=== PATIENT | female | born 1990 | race Caucasian/White ===

== ENCOUNTER 2022-06-23 19:26 | Inpatient (IN) | payer SELFPAY ==
[2022-06-23] MEDS ORDERED: Zofran 4 MG/2 ML VIAL IV PRN (19:50)
[2022-06-23] MEDS ORDERED: OMNIPEN 2 GM ONE (19:56)
[2022-06-23] MEDS ORDERED: Sodium Chloride 100ML MINI-BAG PLUS 100 ML IV ONE ×2 (19:56→23:19)
[2022-06-23] MEDS ORDERED: Lactated Ringers 1,000 ML IV ONE ×2 (19:56→20:00)
[2022-06-23] MEDS: Lactated Ringers 1,000 ML IV SCH (19:58)
[2022-06-23] MEDS ORDERED: OMNIPEN 2 GM*** 2 G in Sodium Chloride 100ML MINI-BAG PLUS 100 ML IV ONE (20:00)
[2022-06-23] MEDS ORDERED: XYLOCAINE 1% HCL 20 ML MDV IJ PRN (20:00)
[2022-06-23] MEDS ORDERED: FENTANYL 2 MCG-BUPIV 0.125%-NS 250 ML Epidur 250 ML EPIDURAL SCH (20:00)
[2022-06-23] MEDS ORDERED: PITOCIN 30 UNITS/ LR 500 ML 30 UNITS/500 ML PLAST..BAG IV SCH (20:00)
[2022-06-23] MEDS ORDERED: Ephedrine Sulfate 50 MG/ML IV PRN (20:00)
[2022-06-23 20:07] LABS: Absolute Neutrophil Ct (ANC) 7.27 x10^3/uL (1.4-6.9); BASOPHIL % 0.2 % (0.0-0.4); Basophil (Absolute #) 0.02 x10^3/uL (0-0.4); Hematocrit 26.3 % (35-47); Hemoglobin 8.2 g/dL (12.0-16.0); Lymphocytes % 16.3 % (24.0-44.0); Mean Cell Volume 80.7 fL (78-100); Mean Corpuscular Hemoglobin 25.2 pg (26-32); Mean Corpuscular Hgb Concent. 31.2 g/dL (32-36); Mean Platelet Volume 11.6 fL (7.5-11.0); Monocyte (Absolute #) 0.74 x10^3/uL (0.0-1.3); Monocytes % 7.5 % (0.0-12.0); Platelet Count 148 x10^3/uL (150-450); Red Blood Count 3.26 x10^6/uL (4.1-5.4); Red Cell Distribution Width 14.2 % (11.5-14.0); White Blood Count 9.8 x10^3/uL (4.0-10.5)
[2022-06-23 20:33] LABS: Appearance Clear (Clear); Bacteria Moderate /HPF (None Seen); Bilirubin Negative (Negative); Blood Negative (Negative); Epithelial Cells None Seen /HPF (None Seen); Glucose, Urine Negative (Negative); Hyaline Casts NONE SEEN /LPF (0-2); Ketones Negative (Negative); Leukocyte Esterase Negative (Negative); Nitrite Negative (Negative); Ph 6.5 (4.6-8.0); Protein,Urine Dip Negative (Negative); RBC 0-2 /HPF (0-5); Specific Gravity 1.015 (1.005-1.030); WBC 0-2 /HPF (0-5)
[2022-06-23 20:44] LABS: ADD URINE CULTURE? YES (NO); Barbiturate,Urine NEGATIVE (NEGATIVE); Benzodiazepine,Urine NEGATIVE (NEGATIVE); Cocaine,Urine NEGATIVE (NEGATIVE); Methadone,Urine NEGATIVE (NEGATIVE); Opiate,Urine NEGATIVE (NEGATIVE); PCP,Urine NEGATIVE (NEGATIVE); THC,Urine NEGATIVE (NEGATIVE)
[2022-06-23 20:52] LABS: ABO TYPING O; Antibody Screen NEGATIVE (NEGATIVE); RH TYPING NEGATIVE
[2022-06-23 21:10] LABS: Amphetamine,Urine POSITIVE (NEGATIVE)
[2022-06-23] MEDS: TYLENOL EXTRA STRENGTH 500 MG PO PRN (21:21)
[2022-06-23] MEDS ORDERED: OMNIPEN 1 GM ONE (23:18)
[2022-06-23] MEDS ORDERED: CORTISONE 1% CREAM TP PRN (23:23)
[2022-06-23] MEDS ORDERED: Mylicon 80MG PO PRN (23:23)
[2022-06-23] MEDS ORDERED: LANSINOH 40 GM TOP PRN (23:23)
[2022-06-23] MEDS ORDERED: Dulcolax 10 MG SUPP PR PRN (23:23)
[2022-06-23] MEDS ORDERED: TUCKS TP PRN (23:23)
[2022-06-23] MEDS ORDERED: Anucort-HC SUPPOSITORY PR PRN (23:23)
[2022-06-23] MEDS ORDERED: NORCO 5/325 MG PO PRN (23:23)
[2022-06-24] MEDS ORDERED: Dermoplast Spray TP PRN
[2022-06-24] MEDS: OMNIPEN 1 GM*** 1 GM in Sodium Chloride 100ML MINI-BAG PLUS 100 ML IV SCH ×2 (00:08→05:52)
[2022-06-24] MEDS ORDERED: Lactated Ringers 1,000 ML IV ONE (02:20)
[2022-06-24] MEDS: TYLENOL EXTRA STRENGTH 500 MG PO PRN ×3 (02:49→16:44)
[2022-06-24] MEDS ORDERED: Hydromorphone 1 mg/ml Injection IV ONE (02:59)
[2022-06-24] MEDS: Lactated Ringers 1,000 ML IV SCH (05:51)
[2022-06-24 08:35] VITALS: O2SAT 99
[2022-06-24] MEDS ORDERED: FERREX 150 PO SCH (10:00)
[2022-06-24] MEDS ORDERED: Docusate Sodium 100 MG PO SCH (10:00)
[2022-06-24] MEDS ORDERED: Rhogam Plus 300 MCG IM ONE (10:00)
[2022-06-24 12:05] LABS: Absolute Neutrophil Ct (ANC) 7.68 x10^3/uL (1.4-6.9); BASOPHIL % 0.3 % (0.0-0.4); Basophil (Absolute #) 0.03 x10^3/uL (0-0.4); Eosinophil % 1.4 % (0.00-5.0); Eosinophil (Absolute #) 0.15 x10^3/uL (0-0.5); Hematocrit 24.5 % (35-47); Hemoglobin 7.6 g/dL (12.0-16.0); IMMATURE GRAN # 0.09 x10^3u/L (0.00-0.03); IMMATURE GRAN % 0.8 % (0.00-0.4); Lymphocyte (Absolute #) 1.97 x10^3/uL (1.0-4.6); Mean Cell Volume 81.1 fL (78-100); Mean Corpuscular Hemoglobin 25.2 pg (26-32); Mean Platelet Volume 12.6 fL (7.5-11.0); Monocyte (Absolute #) 1.04 x10^3/uL (0.0-1.3); Monocytes % 9.5 % (0.0-12.0); NUCLEATED RBC # 0.02 x10^3u/L (0.00-0.01); NUCLEATED RBC % 0.2 % (0.00-0.1); Platelet Count 134 x10^3/uL (150-450); Red Blood Count 3.02 x10^6/uL (4.1-5.4); Red Cell Distribution Width 14.3 % (11.5-14.0)
[2022-06-24] MEDS: MOTRIN 400 MG PO PRN ×2 (12:27→18:57)
[2022-06-24 12:45] VITALS: BP 153/95; PULSE 76
[2022-06-24] MEDS ORDERED: Adacel Vial IM ONE (13:00)
[2022-06-26 17:24] LABS: HBsAg Screen Negative (Negative); HIV Screen 4th Generation wRfx Non Reactive (Non Reactive); Hep C Virus Ab Non Reactive (Non Reactive); RPR Non Reactive (Non Reactive); Rubella Antibodies, IgG 1.27 index (Immune >0.99)
--- NOTE | 2022-06-30 07:57 | SSS ---
ADMISSION DIAGNOSES: 1) Term intrauterine in active labor. 2) with no care. 3) Positive amphetamine use on urine drug screen. DISCHARGE DIAGNOSES: 1) STATUS POST NORMAL SPONTANEOUS VAGINAL DELIVERY. 2) TERM INTRAUTERINE IN ACTIVE LABOR. 3) WITH NO CARE. 4) POSITIVE AMPHETAMINE USE ON URINE DRUG SCREEN. HOSPITAL COURSE: This is a 32-year-old female 7 para 4-0-2-4, who presented at 39 weeks plus estimated gestational age by patient report as she arrived with what appeared to be a gravid term intrauterine and 6 cm dilated in active labor. She has a previous history of four vaginal deliveries and claims that she had some care but that was unable be verified by contacting [facility] and [facility] which are places that she had apparently had some care previously. We were informed by nursing staff at [facility] that the Department of Child Services from [place] had contacted their facility trying to locate this patient and they had been informed that she did not have custody of her other children. Of note, she had positive amphetamines on her urine triage drug screen at arrival. She was found to be 6 cm dilated, 75% effaced, -2 station with a bulging bag of fluid. After she was comfortable with epidural, I artificially ruptured her membranes. She had thin meconium stained fluid. Of note, she also had a hemoglobin of 8.2 on arrival. She progressed and had an uncomplicated vaginal delivery. Several hours after the baby was transferred out due to respiratory distress. day #1 on 06/24/2022, the patient was hemodynamically stable with mild lochia. She was ambulating and tolerating a regular diet and insisted that she be discharged so that she could go be with her son who was transferred to [facility]. She again had an uncomplicated vaginal delivery with no repair. Discharge vital signs: Temperature 97.4F, pulse 76, respiratory rate 20 and blood pressure 143/78. Oxygen saturation 99% on room air. LAB DATA AND TESTS: Discharge CBC had a white count of 11,000, hemoglobin 7.6, PLT count 134,000 and this is minimal change from 148,000 on arrival. HIV was nonreactive. Hepatitis B surface antigen was negative. RPR was also nonreactive. DISCHARGE FOLLOW UP: She was directed to follow up within a week of discharge.
== END 2022-06-24 19:10 | disposition home or self-care (01) | DRG 807 ==
LOC: OB 19:26 → OBSVTOIN 23:35
PROVIDERS: ADMIT Family Medicine; ATTEND Family Medicine
PROC: 10E0XZZ Delivery of Products of Conception, External Approach (ICD-10-PCS; principal; 2022-06-24)
DX: O80 Encounter for full-term uncomplicated delivery (principal); Z37.0 Single live birth; Z3A.39 39 weeks gestation of pregnancy; F15.90 Other stimulant use, unspecified, uncomplicated; Z20.828 Contact with and (suspected) exposure to other viral communicable diseases
CPT/HCPCS: 36415; 80307; 81001; 85025; 86592; 86762; 86803; 86850; 86900; 86901; 87077; 87086; 87186; 87340; 87389; 90715; J0290; J1170; J2405; J2590; A9270-GY; G0472